=== PATIENT | female | born 1970 | race Caucasian/White ===

== ENCOUNTER 2021-08-22 12:40 | Emergency (ER) | payer OTHER ==
[~2021-08-22] VITALS: Ht 160 cm; Wt 63.5 kg
== END 2021-08-22 13:51 | disposition home or self-care (01) ==
LOC: ER 12:40
DX: S61.401A Unspecified open wound of right hand, initial encounter (principal); Y28.0XXA Contact with sharp glass, undetermined intent, initial encounter; Y92.019 Unspecified place in single-family (private) house as the place of occurrence of the external cause